=== PATIENT | female | born 2000 | race Hispanic/Latino ===

== ENCOUNTER 2024-06-04 13:45 | Emergency (ER) | payer SELFPAY ==
[~2024-06-04] VITALS: Ht 147.3 cm; Wt 81.6 kg
--- NOTE | 2024-06-04 14:06 | ERN ---
ED Note History of Present Illness Stated Complaint: ABDOMINAL PAIN Chief Complaint: Abdominal Pain Time Seen by MD: 13:51 Dictation: PATIENT IS A 23-YEAR-OLD FEMALE COMING IN TODAY WITH EPIGASTRIC PAIN THAT RADIATES TO THE RIGHT UPPER QUADRANT AND BACK ONSET LAST NIGHT AFTER EATING CHICK MARCELO A. SHE DENIES FEVER CHILLS NAUSEA VOMITING. STATES SHE DOES NOT HAVE GALLBLADDER DISEASE. STATES SHE DOES HAVE A HISTORY OF GASTRITIS, WAS RECENTLY TREATED WITH SOME MEDICATIONS FROM [place] THAT DID NOT HELP. SHE STATES HER PRIMARY CARE DOCTORS IN [facility], HAS NOT BEEN TO SEE HER FOR THIS PAIN. Allergies: Coded Allergies: No Known Drug Allergies (Unverified Allergy, Unknown, 06/04/24) Past Medical History Past Medical History: No Pertinent History Surgical History: Other Surgical History Other: SURGERY IN [place] History: Not Applicable RN Note Reviewed/Agreed w/PFSH: Yes Review of System Dictation CONSTITUTIONAL: NEGATIVE EXCEPT FOR HPI HEAD/FACE: NEGATIVE EXCEPT FOR HPI EENT: NEGATIVE EXCEPT FOR HPI RESPIRATORY: NEGATIVE EXCEPT FOR HPI GASTROINTESTINAL/ABDOMINAL: NEGATIVE EXCEPT FOR HPI EPIGASTRIC PAIN THAT RADIATES TO RIGHT UPPER QUADRANT GENITOURINARY: NEGATIVE EXCEPT FOR HPI MUSCULOSKELETAL: NEGATIVE EXCEPT FOR HPI INTEGUMENTARY: NEGATIVE EXCEPT FOR HPI NEUROLOGICAL/PSYCH: NEGATIVE EXCEPT FOR HPI HEMATOLOGIC/LYMPHATIC: NEGATIVE EXCEPT FOR HPI ALL SYSTEMS NEGATIVE, EXCEPT NOTED ABOVE. 13 POINT REVIEW OF SYSTEMS ASSESSED AND ALL NEGATIVE EXCEPT FOR ABOVE. Initial Vital Sign VS Vital Signs Date Time Temp Pulse Resp B/P (MAP) Pulse Ox O2 Delivery O2 Flow Rate FiO2 06/04/24 13:46 98.4 79 16 154/94 98 Room Air 06/04/24 16:18 0 21 Physical Exam Dictation VITAL SIGNS REVIEWED GENERAL APPEARANCE: ALERT, ORIENTED X 3, MODERATE ACUTE DISTRESS, WELL DEVELOPED, NOURISHED. OBESE HEAD AND FACE: NON-TRAUMATIC. EYES: PERRL, PINK CONJUNCTIVAS, EYELID NO TRAUMA, ANTERIOR CHAMBER WITH ARCUS SENILIS. EARS: PINNAS INTACT AND NO SIGNS OF TRAUMA OR ERYTHEMA EAR CANALS CLEAR AND NO DISCHARGE TM NO ERYTHEMA NOSE: NO DISCHARGE, NO BLEEDING. OROPHARYNX: MOUTH NORMAL, TONGUE PINK, PHARYNX CLEAR,NO ERYTHEMA, TONSILS NO EXUDATES, NO ABSCESSES NOTED, MUCOUS MEMBRANE MOIST NECK: SUPPLE, NON-TENDER, NO THYROMEGALY, NO MASSES, NO JVD, NO BRUITS BREAST:DEFERRED CHEST:NO TENDERNESS, NO CREPITUS, NO PARADOXICAL MOVEMENT, NO RETRACTIONS LUNGS:CLEAR, WELL-VENTILATED, SYMMETRIC, NO RALES, NO WHEEZING, NO RHONCHI, NO STRIDOR, GOOD BREATH SOUNDS BILATERALLY HEART: REGULAR RATE, REGULAR RHYTHM, NO MURMUR, NO GALLOPS VASCULAR: NO PERIPHERAL EDEMA, ABDOMEN: SOFT, POSITIVE BOWEL SOUNDS, NONDISTENDED, NO GUARDING, NEGATIVE LOPEZ'S SIGN, POSITIVE EPIGASTRIC TENDERNESS WITH PALPATION, NO REBOUND, NO MASSES NO HEPATOMEGALY, NO SPLENOMEGALY, NO LOPEZ'S SIGN, NO HERNIAS. NEGATIVE CVAT BILATERAL RECTAL: DEFERRED GENITAL: DEFERRED NEUROLOGICAL: NORMAL SPEECH, MOTOR FUNCTION INTACT, SENSORY FUNCTION INTACT MUSCULOSKELETAL: NECK NONTENDER, FULL RANGE OF MOTION, BACK NONTENDER, FULL RANGE OF MOTION, EXTREMITIES: NONTENDER, FULL RANGE OF MOTION SKIN: COLOR PINK, DRY, NO TURGOR, NO RASH, NO LACERATIONS, NO ABRASIONS, NO CONTUSIONS. LYMPHATIC: DEFERRED Results (Laboratory/Radiology) Laboratory/Radiology Laboratory Tests Test 06/04/24 14:16 06/04/24 15:50 White Blood Count 10.1 K/uL (4.8-10.8) Red Blood Count 4.43 MIL/uL (4.00-5.50) Hemoglobin 10.3 g/dL (12.0-16.0) L Hematocrit 33.1 % (36-48) L Mean Corpuscular Volume 74.7 fL (79-99) L Mean Corpuscular Hemoglobin 23.3 pg (27.0-33.0) L Mean Corpuscular Hemoglobin Concent 31.1 g/dL (32.0-36.0) L Red Cell Distribution Width 14.8 % (11.0-15.5) Platelet Count 411 K/uL (130-400) H Mean Platelet Volume 11.3 fL (7.5-10.5) H Immature Granulocyte % (Auto) 0.5 % (0-1) Neutrophils (%) (Auto) 60.2 % (40.0-77.0) Lymphocytes (%) (Auto) 31.1 % (21.0-51.0) Monocytes (%) (Auto) 5.9 % (3.0-13.0) Eosinophils (%) (Auto) 1.9 % (0.0-8.0) Basophils (%) (Auto) 0.4 % (0.0-5.0) Neutrophils # (Auto) 6.1 K/uL (1.8-7.7) Lymphocytes # (Auto) 3.2 K/uL (1.0-4.8) Monocytes # (Auto) 0.6 K/uL (0.1-1.0) Eosinophils # (Auto) 0.19 K/uL (0.00-0.70) Basophils # (Auto) 0.04 K/uL (0.00-0.20) Absolute Immature Granulocyte (auto 0.05 K/uL (0-1) Nucleated Red Blood Cells 0.0 % (0.0-0.19) Red Blood Cell Morphology See comments Sodium Level 139 mmol/L (136-145) Potassium Level 4.5 mmol/L (3.5-5.1) Chloride Level 103 mmol/L (101-111) Carbon Dioxide Level 32 mmol/L (21-32) Blood Urea Nitrogen 6 mg/dL (7-18) L Creatinine 0.5 mg/dL (0.5-1.0) Glomerular Filtration Rate Calc 134 mL/min (>90) Random Glucose 107 mg/dL (70-105) H Total Calcium 8.6 mg/dL (8.5-10.1) Lipase 21 U/L (16-77) Urine Color RED (YELLOW) H Urine Appearance HAZY (CLEAR) Urine pH 5.5 (5.0-8.0) Urine Specific [place] 1.022 (1.001-1.031) Urine Protein 30 mg/dL (NEGATIVE) H Urine Glucose (UA) NEGATIVE mg/dL (NEGATIVE) Urine Ketones NEGATIVE mg/dL (NEGATIVE) Urine Occult Blood LARGE (NEGATIVE) H Urine Nitrate NEGATIVE (NEGATIVE) Urine Bilirubin NEGATIVE mg/dL (NEGATIVE) Urine Urobilinogen 0.2 mg/dL (0.2-1.0) Urine Leukocyte Esterase 25 Jessica/uL (NEGATIVE) H Urine RBC TNTC /HPF (0-1) H Urine WBC 11-25 /HPF (0-1) H Urine Squamous Epithelial Cells RARE /HPF (0-2) Urine Bacteria RARE /HPF (None Seen) Urine HCG, Qualitative NEGATIVE (NEGATIVE) 1600/right upper quadrant ultrasound demonstrates stones with sludge in gallbladder. Common bile duct and gallbladder wall are normal, no pericholecystic fluid. Labs Reviewed?: Yes ED Course ED Course Orders Procedure Category Date Status Time Cbc With Differential LAB 06/04/24 Complete 14:03 ,Urine Test LAB 06/04/24 Complete 14:03 Urinalysis Profile LAB 06/04/24 Complete 14:03 Us Abdominal Ruq\Ltd US 06/04/24 Taken 14:03 0.9%Nacl 1000ml (Ns PHA 06/04/24 Complete 1000ml) 14:30 Ondansetron 4mg Inj PHA 06/04/24 Complete (Zofran 4mg Inj) 14:30 Famotidine 20mg Vial PHA 06/04/24 Complete (Pepcid 20mg Vial) 14:30 Lipase LAB 06/04/24 Complete 14:03 Basic Metabolic Panel LAB 06/04/24 Complete 14:03 Culture Urine GERI 06/04/24 In Process 16:10 Current Medications Medications (Trade) Dose Ordered Sig/Tianna Route PRN Reason Start Time Stop Time Status Last Admin Dose Admin Famotidine (Pepcid 20mg Vial) 20 mg ONCE ONCE IV 06/04/24 14:30 06/04/24 14:31 DC 06/04/24 16:08 Ondansetron HCl (zoFRAN 4MG INJ) 4 mg ONCE ONCE IVP 06/04/24 14:30 06/04/24 14:31 DC 06/04/24 16:08 Sodium Chloride 1,000 ml @ 0 mls/hr ONCE ONCE IV 06/04/24 14:30 06/04/24 14:31 DC 06/04/24 16:08 Vital Signs Date Time Temp Pulse Resp B/P (MAP) Pulse Ox O2 Delivery O2 Flow Rate FiO2 06/04/24 16:18 98.4 99 18 126/42 100 Room Air* 0 21 06/04/24 13:46 98.4 79 16 154/94 98 Room Air 1625/PATIENT HAS DEMONSTRATED GALLBLADDER SLUDGE WITH PROBABLE BILIARY COLIC. IN ADDITION SHE HAS A ACUTE CYSTITIS WITH HEMATURIA WE WILL BE GIVEN ROCEPHIN ADDITION TO HER FLUIDS AND SENT HOME WITH MEDICATIONS FOR BILIARY COLIC AND CHOLELITHIASIS/SLUDGE AND UTI. GIVEN THE NAME OF DR. VILLAR HERE TO FOLLOW UP OUTPATIENT. Medical Decision Making MDM MDM: DIFFERENTIAL DIAGNOSIS: GASTRITIS/PANCREATITIS/CHOLELITHIASIS/CHOLEDOCHOLITHIASIS/BILIARY COLIC/ELECTROLYTE IMBALANCE/DEHYDRATION/UTI RATIONALE: TESTS CONSIDERED AND ORDERED SECONDARY TO SHARED DECISION MAKING INCLUDE: LABS/RADIOLOGY PREVIOUS OUTSIDE RECORDS REVIEWED: OLD ER VISITS. RISK OF COMPLICATION AND/OR MORBIDITY OR MORTALITY OF PATIENT MANAGEMENT: NONE MEDICATIONS-PER MEDICATION RECONCILIATION NEED FOR HOSPITALIZATION: PATIENT DOES NOT MEET CRITERIA FOR HOSPITALIZATION. NONE NEED FOR EMERGENCY MAJOR/MINOR SURGERY: NO THERE ARE NO SOCIAL CONCERNS WITH THIS PATIENT. PRESCRIPTION DRUG MANAGEMENT NITROFURANTOIN/IBUPROFEN/OMEPRAZOLE PRESCRIPTIONS WILL INCLUDE SYMPTOMATIC CARE PATIENT'S PRIOR EXTERNAL MEDICAL RECORDS FROM OTHER ER VISITS WERE REVIEWED BY ME INDICATED. PRIOR TESTING AND RESULTS FROM PREVIOUS VISITS WERE REVIEWED. PRIOR TESTS WERE TAKEN INTO ACCOUNT WITH MEDICAL DECISION MAKING AND RESOURCE UTILIZATION, INDEPENDENT HISTORIAN/HISTORIANS WERE USED TO OBTAIN COMPLETE MEDICAL HISTORY. I INDEPENDENTLY INTERPRETED THE TEST THAT WERE PERFORMED, RESULTS WERE REVIEWED BY ME AND CONSIDERED FINDINGS ON RADIOLOGY IF ORDERED. MEDICAL MANAGEMENT AND EXAMINATION INTERPRETATION DISCUSSIONS WERE HAD BY ME WITH OTHER QUALIFIED HEALTHCARE PROFESSIONALS INDICATED FOR THE PATIENT'S CARE. DX & DISP Disposition: Discharge Departure Impression: Primary Impression: Gallbladder sludge Additional Impressions: Biliary colic, Acute gastritis, Acute cystitis with hematuria Condition: Stable Scripts Omeprazole (Omeprazole) 40 Mg Capsule.dr 1 CAP PO DAILY for 30 Days, #30 CAP 0 Refills Prov: RAMIRO ALEXANDER COUNTER HOP 06/04/24 Ibuprofen (Ibuprofen 800 mg Tab) 800 Mg Tab 800 MG PO Q8H PRN for fever or pain, #30 TAB 0 Refills Prov: RAMIRO ALEXANDER COUNTER HOP 06/04/24 Nitrofurantoin Macrocrystal (Nitrofurantoin) 100 Mg Capsule 1 CAP PO BID for 7 Days, #14 CAP 0 Refills Prov: RAMIRO ALEXANDER COUNTER HOP 06/04/24 Additional Instructions: FOLLOW-UP WITH PRIMARY CARE PROVIDER IN 1 TO 2 DAYS. TAKE MEDICATIONS DIRECTED HERE IN THE EMERGENCY ROOM. OKAY TO CONTINUE HOME MEDICATIONS UNLESS OTHERWISE DISCUSSED DURING YOUR VISIT IN THE EMERGENCY ROOM TODAY. RETURN TO YOUR NEAREST EMERGENCY ROOM IF SYMPTOMS WORSEN OR IF THERE IS NO IMPROVEMENT. CALL 911 IF YOU NEED IMMEDIATE ASSISTANCE. TAKE TYLENOL OR MOTRIN OVER-THE-C OUNTER NEEDED AND IF NO CONTRAINDICATIONS ARE PRESENT. INCREASE ORAL HYDRATION. A WOUND CULTURE OR URINE CULTURE WAS ORDERED HERE IN THE EMERGENCY ROOM DEPARTMENT PLEASE FOLLOW-UP WITH PRIMARY CARE PROVIDER AND ADVISE THEM TO GET REPEAT PORTS FROM OUR FACILITY. IF YOU HAD ANY LISA WRAP/SPLINTS THAT WERE APPLIED HERE, PLEASE DO NOT REMOVE THEM UNTIL YOU SEE YOUR PRIMARY CARE OR SPECIALTY. TAKE ANTIBIOTIC DIRECTED UNTIL GONE. TAKE OMEPRAZOLE DIRECTED DAILY. SUGGEST BLAND DIET WITH WATER FOR FLUIDS ONLY. NO ICE TEA, NO SODA POP, NO ALCOHOL, NO SPICY FOODS. CALL SURGEON FOR FOLLOW UP ON YOUR GALLBLADDER IN THE NEXT 2-3 DAYS NEEDED. Referrals: NONE (PCP) AUREA WEST MD I have reviewed the case, and I agree with, Diagnosis and Plan RAMIRO ALEXANDER NP Jun 04, 2024 14:06
[2024-06-04 14:25] LABS: BASOPHILS # (AUTO) 0.04 K/uL (0.00-0.20); BASOPHILS % (AUTO) 0.4 % (0.0-5.0); EOSINOPHILS # (AUTO) 0.19 K/uL (0.00-0.70); EOSINOPHILS % (AUTO) 1.9 % (0.0-8.0); HEMATOCRIT 33.1 % (36-48); IMMATURE GRANULOCYTE ABSOLUTE 0.05 K/uL (0-1); LYMPHOCYTES # (AUTO) 3.2 K/uL (1.0-4.8); LYMPHOCYTES % (AUTO) 31.1 % (21.0-51.0); MEAN CORPUSCULAR HEMOGLOBIN 23.3 pg (27.0-33.0); MEAN CORPUSCULAR HGB CONC 31.1 g/dL (32.0-36.0); MEAN CORPUSCULAR VOLUME 74.7 fL (79-99); MONOCYTES # (AUTO) 0.6 K/uL (0.1-1.0); MONOCYTES % (AUTO) 5.9 % (3.0-13.0); NEUTROPHILS # (AUTO) 6.1 K/uL (1.8-7.7); NEUTROPHILS % (AUTO) 60.2 % (40.0-77.0); PLATELET COUNT (AUTO) 411 K/uL (130-400); RED BLOOD CELL COUNT(AUTO) 4.43 MIL/uL (4.00-5.50); RED CELL DISTRIBUTION WIDTH 14.8 % (11.0-15.5); WHITE BLOOD COUNT (AUTO) 10.1 K/uL (4.8-10.8)
[2024-06-04 14:31] LABS: CREATININE 0.5 mg/dL (0.5-1.0); POTASSIUM 4.5 mmol/L (3.5-5.1)
[2024-06-04 16:00] LABS: HCG,QUALITATIVE URINE NEGATIVE (NEGATIVE)
[2024-06-04 16:01] LABS: ADD UA MICROSCOPIC YES; APPEARANCE,URINE HAZY (CLEAR); BILIRUBIN,URINE NEGATIVE (NEGATIVE); COLOR,URINE RED (YELLOW); GLUCOSE, URINE (UA) NEGATIVE (NEGATIVE); KETONES,URINE NEGATIVE (NEGATIVE); LEUKOCYTE ESTERASE ,URINE 25 Leu/uL (NEGATIVE); NITRATE,URINE NEGATIVE (NEGATIVE); OCCULT BLOOD,URINE LARGE (NEGATIVE); PH,URINE 5.5 (5.0-8.0); PROTEIN,URINE 30 mg/dL (NEGATIVE); UROBILINOGEN,URINE 0.2 mg/dL (0.2-1.0)
[2024-06-04] MEDS: FAMOTIDINE 20MG VIAL IV ONE (16:08)
[2024-06-04] MEDS: ondanSETRON 4MG INJ IVP ONE (16:08)
[2024-06-04] MEDS: 0.9%NACL 1000ML 1,000 ML IV ONE (16:08)
[2024-06-04 16:09] LABS: BACTERIA,URINE RARE /HPF (None Seen); MUCUS,URINE RARE LPF (None Seen); RBC,URINE TNTC /HPF (0-1); SQUAMOUS EPITHELIAL CELL,UR RARE /HPF (0-2)
[2024-06-04] MEDS ORDERED: OMEP40CA21 PO (16:29)
[2024-06-04] MEDS ORDERED: NITR100C PO (16:29)
[2024-06-04] MEDS ORDERED: IBUP-2077 PO (16:29)
[2024-06-04] MEDS: cefTRIAXone 1G VIAL IVP ONE (16:39)
[2024-06-04 16:44] VITALS: BP 136/70; PULSE 79; RESP 16; TEMP 98.4; O2SAT 98
--- NOTE | 2024-06-05 08:17 | HMCIMG ---
US ABDOMINAL RUQ\E\LTD HISTORY: Adominal Pain COMPARISON: None FINDINGS: There is moderate fatty infiltration of the liver. There are no focal liver masses. The liver is enlarged at 21 cm.There multiple stones present in the gallbladder, there is some sludge as well. There is no wall thickening or edema. The gallbladder does appear somewhat distended. Common duct is normal at 5 mm.. Right kidney is normal with no evidence of mass, hydronephrosis or stone.The pancreas appears normal as well. IMPRESSION: 1. Cholelithiasis and sludge, the gallbladder appears distended but there is no wall thickening or edema. 2. Moderate hepatic steatosis, the liver is enlarged at 21 cm.
== END 2024-06-04 16:49 | disposition home or self-care (01) ==
LOC: EDH 13:45
DX: K82.8 Other specified diseases of gallbladder (principal); K80.50 Calculus of bile duct without cholangitis or cholecystitis without obstruction; K29.00 Acute gastritis without bleeding; N30.01 Acute cystitis with hematuria
CPT/HCPCS: 99285; 96374; 76705; 96375; 96361; 80048; 83690; 85025; 87086; 81001; 81025; 36415; J3490; J7030; J0696; J2405